=== PATIENT | male | born 1960 | race African-American/Black ===

== ENCOUNTER 2019-01-21 20:05 | Emergency (ER) | payer MEDICARE ==
[~2019-01-21] VITALS: Ht 175.3 cm; Wt 100.0 kg
[2019-01-21 20:26] VITALS: Ht 175.3 cm; Wt 100.0 kg
[2019-01-21] MEDS ORDERED: CARDIZEM120 MG PO (20:28)
[2019-01-21] MEDS ORDERED: PROTONIX40 MG PO (20:28)
[2019-01-21] MEDS ORDERED: BAYER CHEWABLE81 MG PO (20:28)
[2019-01-21] MEDS ORDERED: COREG12.5 MG PO (20:28)
[2019-01-21] MEDS ORDERED: LISINOPRIL5 MG PO (20:29)
[2019-01-21] MEDS ORDERED: RANITIDINE HCL150 M1 PO (20:29)
[2019-01-21] MEDS ORDERED: NITROSTAT0.4 MG SL (20:29)
[2019-01-21] MEDS ORDERED: PLAVIX75 MG PO (20:29)
[2019-01-21] MEDS ORDERED: ISOSORBIDE MONO60 M1 PO (20:29)
[2019-01-21] MEDS ORDERED: VOLTAREN100 GM TOPICAL (20:29)
[2019-01-21] MEDS ORDERED: ALDACTONE25 MG PO (20:30)
[2019-01-21] MEDS ORDERED: ALBUTEROL2.5 MG/3 M INH (20:30)
[2019-01-21] MEDS ORDERED: KLOR-CON M2020 MEQ PO (20:30)
[2019-01-21] MEDS ORDERED: ANORO ELLIPTA1 EACH INH (20:30)
[2019-01-21] MEDS ORDERED: LASIX40 MG PO (20:31)
[2019-01-21] MEDS ORDERED: BUSPAR10 MG PO (20:31)
[2019-01-21] MEDS ORDERED: TRAZODONE HCL150 MG PO (20:31)
[2019-01-21] MEDS ORDERED: BUPROPION XL300 MG PO (20:31)
[2019-01-21] MEDS ORDERED: CYCLOBENZAPRINE10 MG PO (20:31)
[2019-01-21] MEDS ORDERED: LIPITOR80 MG PO (20:32)
[2019-01-21] MEDS ORDERED: PROZAC20 MG PO (20:32)
[2019-01-21 21:04] LABS: BASOPHILS 0.6 % (0-2); EOSINOPHILS 4.7 % (0-7); HEMATOCRIT 39.5 % (42.0-54.0); HEMOGLOBIN 13.3 g/dL (13.5-17.5); IMMATURE GRANULOCYTES 0.2 % (0-5); LYMPHOCYTES 45.8 % (15-50); MCH 32.8 pg (26.0-34.0); MCHC 33.7 g/dL (31.0-37.0); MCV 97.3 fL (80.0-100.0); MEAN PLATELET VOLUME 9.7 fL (7.4-10.4); MONOCYTES 7.4 % (2-11); NEUTROPHILS 41.3 % (40-80); PLATELET COUNT 218 10x3/uL (130-400); RBC 4.06 10x6/uL (4.20-6.10); RDW 13.1 % (11.5-14.5); WBC 5.3 10x3/uL (4.8-10.8)
[2019-01-21 21:11] LABS: APTT 26.1 SECONDS (22.8-39.4); INR 1.01 (0.85-1.17); PROTIME 12.8 SECONDS (11.6-15.0)
[2019-01-21 21:24] LABS: ALBUMIN 3.4 g/dL (3.4-5.0); ALKALINE PHOSPHATASE 79 U/L (46-116); ALT (SGPT) 19 U/L (10-68); BILIRUBIN - TOTAL 0.17 mg/dL (0.2-1.3); CALC OSMOLALITY 274 mosm/kg (275-300); CALCIUM 8.9 mg/dL (8.5-10.1); CHLORIDE - SERUM 101 mmol/L (98-107); CREATININE - SERUM 1.5 mg/dL (0.6-1.3); GLUCOSE 92 mg/dL (74-106); PROTEIN - SERUM 7.4 g/dL (6.4-8.2); SODIUM 137 mmol/L (136-145); UREA NITROGEN 15 mg/dL (7-18); eGFR NON AFRICAN AMERICAN 51 mL/min (90-120)
[2019-01-21 21:36] LABS: CKMB 0.7 U/L (0.0-3.6); CREATINE KINASE 100 UL (21-232); MAGNESIUM - SERUM 1.9 mg/dL (1.8-2.4)
[2019-01-21 21:38] LABS: TROPONIN-I < 0.017 ng/mL (0.000-0.060)
[2019-01-21] MEDS ORDERED: ATIVAN1 MG PO (22:52)
[2019-01-21 23:29] VITALS: BP 121/78
== END 2019-01-21 23:22 | disposition home or self-care (01) ==
LOC: D.ER 20:05
PROVIDERS: Emergency Medicine
DX: R20.2 Paresthesia of skin (principal)

== ENCOUNTER 2019-01-23 14:40 | Emergency (ER) | payer MEDICARE ==
[~2019-01-23] VITALS: Ht 175.3 cm; Wt 100.0 kg
[~2019-01-23 14:40] MED LIST: ALBUTEROL2.5 MG/3 M INH; ALDACTONE25 MG PO; ANORO ELLIPTA1 EACH INH; ATIVAN1 MG PO; BAYER CHEWABLE81 MG PO; BUPROPION XL300 MG PO; BUSPAR10 MG PO; CARDIZEM120 MG PO; COREG12.5 MG PO; CYCLOBENZAPRINE10 MG PO; ISOSORBIDE MONO60 M1 PO; KLOR-CON M2020 MEQ PO; LASIX40 MG PO; LIPITOR80 MG PO; LISINOPRIL5 MG PO; NITROSTAT0.4 MG SL; PLAVIX75 MG PO; PROTONIX40 MG PO; PROZAC20 MG PO; RANITIDINE HCL150 M1 PO; TRAZODONE HCL150 MG PO; VOLTAREN100 GM TOPICAL
[2019-01-23 15:06] VITALS: Ht 175.3 cm; Wt 100.0 kg
[2019-01-23] MEDS ORDERED: SELENIUM SULFI118 ML TP (17:15)
[2019-01-23 17:21] VITALS: BP 147/86
== END 2019-01-23 17:22 | disposition home or self-care (01) ==
LOC: D.ER 14:40
DX: B36.0 Pityriasis versicolor (principal)